=== PATIENT | male | born 1975 | race Caucasian/White ===

== ENCOUNTER 2022-01-18 13:45 | Emergency (ER) | payer SELFPAY ==
--- NOTE | 2022-01-18 19:11 | PC.NURSE ---
CALLED X3 TO TRIAGE NO ANSWER
== END 2022-01-18 19:41 | disposition left against medical advice (07) ==
PROVIDERS: Emergency Provider Emergency Medicine
DX: M54.9 Dorsalgia, unspecified (principal)